=== PATIENT | female | born 1945 | race African-American/Black ===

== ENCOUNTER 2019-07-31 22:23 | Emergency (ER) | payer MEDICARE, OTHER ==
[~2019-07-31] VITALS: Ht 175.3 cm; Wt 99.8 kg
[2019-07-31 23:10] LABS: ABSOLUTE NEUTROPHILS 4.6 thou/uL (1.4-8.2); BASOPHILS 0.6 % (0.0-2.0); EOSINOPHILS 1.6 % (0.0-3.0); HEMATOCRIT 35.2 % (37.0-47.0); HEMOGLOBIN 11.8 gm/dL (12.0-15.0); LYMPHOCYTES 36.4 % (24.0-44.0); MCH 31.1 pg (26.0-34.0); MCHC 33.4 g/dL (28.0-37.0); MCV 93.1 fL (80.0-100.0); MONOCYTES 5.9 % (1.0-8.0); PLATELET COUNT 207 thou/uL (150-400); POLYS 55.5 % (36.0-66.0); RBC 3.78 mil/uL (4.20-5.00); RDW 13.6 % (10.5-14.5); WBC 8.3 thou/uL (4.0-11.0)
[2019-07-31] MEDS ORDERED: TYLENOL325 M1 PO (23:11)
[2019-07-31] MEDS ORDERED: MIRALAX119 GM PO (23:12)
[2019-07-31] MEDS ORDERED: LIPITOR 20 MG T20 M1 PO (23:13)
[2019-07-31] MEDS ORDERED: FAMOTIDINE 20 M20 MG PO (23:13)
[2019-07-31] MEDS ORDERED: LANTUS SUBQ (23:14)
[2019-07-31] MEDS ORDERED: PLAVIX 75 MG TA75 MG PO (23:14)
[2019-07-31] MEDS ORDERED: VOLTAREN GEL 1100 G1 TOP (23:16)
[2019-07-31] MEDS ORDERED: METFORMIN HCL500 M3 PO (23:16)
[2019-07-31 23:17] LABS: CALCIUM 9.7 mg/dL (8.5-10.1); CREATININE 1.6 mg/dL (0.6-1.0); POTASSIUM 4.1 mmol/L (3.5-5.1)
[2019-07-31] MEDS ORDERED: CALCIUM CARBON500 MG PO (23:17)
[2019-07-31] MEDS ORDERED: CARVEDILOL12.5 MG PO (23:18)
[2019-07-31] MEDS ORDERED: LISINOPRIL2.5 MG PO (23:19)
[2019-07-31] MEDS ORDERED: NORVASC 2.5 MG2.5 M1 PO (23:19)
[2019-07-31] MEDS ORDERED: AMITIZA8 MCG PO (23:20)
[2019-07-31] MEDS ORDERED: HYDRALAZINE 5050 MG PO (23:20)
[2019-07-31 23:23] LABS: ALBUMIN 3.2 g/dL (3.4-5.0); TOTAL BILIRUBIN 0.2 mg/dL (<0.1-1.0); TOTAL PROTEIN 7.9 g/dL (6.4-8.2)
[2019-08-01] MEDS ORDERED: DULCOLAX STOOL100 M1 PO (00:25)
[2019-08-01 00:29] LABS: URINE BILIRUBIN NEGATIVE (Negative); URINE BLOOD 3+ (Negative); URINE CLARITY CLOUDY; URINE COLOR YELLOW; URINE GLUCOSE-RANDOM* 1+ (Negative); URINE KETONES NEGATIVE (Negative); URINE LEUKOCYTES-REFLEX TRACE (Negative); URINE NITRITE-REFLEX NEGATIVE (Negative); URINE PROTEIN (DIPSTICK) 2+ (Negative); URINE SPECIFIC GRAVITY 1.025 (1.005-1.035); URINE UROBILINOGEN 0.2 E.U./dl (0.2-1.0)
[2019-08-01 00:31] VITALS: BP 142/63
[2019-08-01 00:55] LABS: BACTERIA-REFLEX 1-9 Few /HPF (None Seen); SQUAMOUS 4-10 Moderate /LPF (0-3); URINE RBC >20 Many /HPF (0-2); URINE WBC-REFLEX 0-5 Rare /HPF (0-5)
[2019-08-01 00:56] LABS: CASTS None Seen /LPF (None Seen); CRYSTALS None Seen /LPF (None Seen); MUCUS 0-3 Light strn/LPF (None Seen); YEAST-REFLEX Present (None Seen)
== END 2019-08-01 01:42 ==
LOC: ER 22:23
PROVIDERS: Emergency Medicine
DX: K59.00 Constipation, unspecified (principal); Z79.899 Other long term (current) drug therapy; Z88.6 Allergy status to analgesic agent; Z86.73 Personal history of transient ischemic attack (TIA), and cerebral infarction without residual deficits

== ENCOUNTER 2020-04-10 13:20 | Emergency (ER) | payer MEDICARE, OTHER ==
[~2020-04-10] VITALS: Ht 172.7 cm; Wt 117.9 kg
[~2020-04-10 13:20] MED LIST: AMITIZA8 MCG PO; CALCIUM CARBON500 MG PO; CARVEDILOL12.5 MG PO; DULCOLAX STOOL100 M1 PO; FAMOTIDINE 20 M20 MG PO; HYDRALAZINE 5050 MG PO; LANTUS SUBQ; LIPITOR 20 MG T20 M1 PO; LISINOPRIL2.5 MG PO; METFORMIN HCL500 M3 PO; MIRALAX119 GM PO; NORVASC 2.5 MG2.5 M1 PO; PLAVIX 75 MG TA75 MG PO; TYLENOL325 M1 PO; VOLTAREN GEL 1100 G1 TOP
[2020-04-10 14:18] LABS: URINE BILIRUBIN NEGATIVE (Negative); URINE BLOOD 3+ (Negative); URINE CLARITY HAZY; URINE COLOR YELLOW; URINE GLUCOSE-RANDOM* NEGATIVE (Negative); URINE KETONES TRACE (Negative); URINE LEUKOCYTES-REFLEX 1+ (Negative); URINE NITRITE-REFLEX NEGATIVE (Negative); URINE PROTEIN (DIPSTICK) 3+ (Negative); URINE SPECIFIC GRAVITY 1.025 (1.005-1.035); URINE UROBILINOGEN 0.2 E.U./dl (0.2-1.0)
[2020-04-10 14:29] LABS: SQUAMOUS None Seen /LPF (0-3)
[2020-04-10 14:30] LABS: AMORPHOUS URATES Moderate /LPF (None Seen); BACTERIA-REFLEX >30 Many /HPF (None Seen); CASTS None Seen /LPF (None Seen); URINE RBC >20 Many /HPF (0-2); URINE WBC-REFLEX >25 Many /HPF (0-5)
[2020-04-10 15:06] LABS: ABSOLUTE NEUTROPHILS 5.3 thou/uL (1.4-8.2); BASOPHILS 0.2 % (0.0-2.0); EOSINOPHILS 0.1 % (0.0-3.0); HEMATOCRIT 25.2 % (37.0-47.0); HEMOGLOBIN 8.3 gm/dL (12.0-15.0); LYMPHOCYTES 15.7 % (24.0-44.0); MCH 29.8 pg (26.0-34.0); MCHC 32.9 g/dL (28.0-37.0); MCV 90.6 fL (80.0-100.0); MONOCYTES 5.8 % (1.0-8.0); PLATELET COUNT 155 thou/uL (150-400); POLYS 78.2 % (36.0-66.0); RBC 2.78 mil/uL (4.20-5.00); RDW 14.2 % (10.5-14.5); WBC 6.7 thou/uL (4.0-11.0)
[2020-04-10 15:24] LABS: ANION GAP 13 mmol/L (7-16); BUN 41 mg/dL (7-18); CALCIUM 9.2 mg/dL (8.5-10.1); CHLORIDE 103 mmol/L (98-107); CO2 21 mmol/L (21-32); CREATININE 2.2 mg/dL (0.6-1.0); GLUCOSE 172 mg/dL (74-106); POTASSIUM 4.1 mmol/L (3.5-5.1); SODIUM 137 mmol/L (136-145)
[2020-04-10 15:28] LABS: ALBUMIN 2.6 g/dL (3.4-5.0); DIRECT BILIRUBIN < 0.1 mg/dL (<0.1-0.2); LIPASE 350 U/L (73-393); SGOT 22 U/L (15-37); SGPT 16 U/L (14-59); TOTAL BILIRUBIN 0.2 mg/dL (0.2-1.0); TOTAL PROTEIN 7.3 g/dL (6.4-8.2)
[2020-04-10 19:40] VITALS: BP 123/59
--- NOTE | 2020-04-11 07:35 | EKG ---
[place] [address] [facility] [place] [address] ELECTROCARDIOGRAM REPORT Name: AVINASH PALACIOS [id number] Admission: 04/10/20 Attend Phys: Discharge: 04/10/20 Date of : 45 Report #: [id number] [facility] ED Test Date: 2020-04-10 Test Time: 13:47:14 Pat Name: AVINASH PALACIOS Department: Room: Gender: F Lead Electrical Controls Engineer: DAKOTA : 1945 Requested By: Juwan Alonso Order Number: [id number] MD: Dio Brito Measurements Intervals [place] Rate: 67 P: 68 UT: 160 QRS: 2 QRSD: 91 T: 20 QT: 397 QTc: 419 Interpretive Statements Sinus rhythm Abnormal R-wave progression, early transition No previous ECG available for comparison Electronically Signed On 04-11-2020 7:35:45 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
== END 2020-04-10 19:40 | disposition home or self-care (01) ==
LOC: ER 13:20
PROVIDERS: Nurse Practitioner
DX: U07.1 COVID-19 (principal); J12.82 Pneumonia due to coronavirus disease 2019; N39.0 Urinary tract infection, site not specified; E11.22 Type 2 diabetes mellitus with diabetic chronic kidney disease; I12.9 Hypertensive chronic kidney disease with stage 1 through stage 4 chronic kidney disease, or unspecified chronic kidney disease; N18.9 Chronic kidney disease, unspecified; M19.90 Unspecified osteoarthritis, unspecified site; E78.5 Hyperlipidemia, unspecified; K21.9 Gastro-esophageal reflux disease without esophagitis; E66.01 Morbid (severe) obesity due to excess calories; Z68.39 Body mass index [BMI] 39.0-39.9, adult; Z79.899 Other long term (current) drug therapy; Z79.4 Long term (current) use of insulin; Z88.6 Allergy status to analgesic agent

== ENCOUNTER 2020-04-17 12:40 | Emergency (ER) | payer MEDICARE, OTHER ==
[~2020-04-17] VITALS: Ht 167.6 cm; Wt 104.3 kg
--- NOTE | 2020-04-17 13:52 | EKG ---
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 : 1945 Requested By: Veronique Mari Order Number: [id number] MD: Dio Brito Measurements Intervals [place] Rate: 67 P: 63 WV: 154 QRS: 18 QRSD: 81 T: 44 QT: 437 QTc: 462 Interpretive Statements Sinus rhythm Abnormal R-wave progression, early transition Probable left ventricular hypertrophy Baseline wander in lead(s) V1 Compared to ECG 04/10/2020 13:47:14 No significant changes Electronically Signed On 04-17-2020 13:52:08 EXPERIMENTAL MECHANIC SPACECRAFT by Dio Brito [email or web address] <ELECTRONICALLY SIGNED> By: Dio Brito MD, [facility] 04/17/20 1352 D: 01/1330 30 Dio Brito MD, FACC /EPI
[2020-04-17 15:10] LABS: ABSOLUTE NEUTROPHILS 10.2 thou/uL (1.4-8.2); BASOPHILS 0.1 % (0.0-2.0); EOSINOPHILS 0.3 % (0.0-3.0); HEMATOCRIT 27.7 % (37.0-47.0); MCH 29.3 pg (26.0-34.0); MCHC 32.4 g/dL (28.0-37.0); MCV 90.2 fL (80.0-100.0); MONOCYTES 4.1 % (1.0-8.0); PLATELET COUNT 309 thou/uL (150-400); POLYS 85.5 % (36.0-66.0); RBC 3.07 mil/uL (4.20-5.00); RDW 13.9 % (10.5-14.5); WBC 11.9 thou/uL (4.0-11.0)
[2020-04-17 15:22] LABS: ANION GAP 13 mmol/L (7-16); BUN 48 mg/dL (7-18); CALCIUM 9.5 mg/dL (8.5-10.1); CHLORIDE 104 mmol/L (98-107); CO2 20 mmol/L (21-32); CREATININE 1.6 mg/dL (0.6-1.0); GLUCOSE 225 mg/dL (74-106); POTASSIUM 4.5 mmol/L (3.5-5.1); SODIUM 137 mmol/L (136-145)
[2020-04-17 15:25] LABS: APTT 25.5 Seconds (24.5-32.8); INR 1.1; PROTIME 10.8 Seconds (9.3-11.4)
[2020-04-17 15:33] LABS: ALBUMIN 2.4 g/dL (3.4-5.0); LIPASE 245 U/L (73-393); MAGNESIUM 2.1 mg/dL (1.8-2.4); SGOT 15 U/L (15-37); SGPT 18 U/L (30-65); TOTAL BILIRUBIN 0.2 mg/dL (0.2-1.0); TOTAL PROTEIN 7.5 g/dL (6.4-8.2); TROPONIN-I <0.06 ng/mL (<0.06)
[2020-04-17 15:55] LABS: URINE BILIRUBIN NEGATIVE (Negative); URINE BLOOD 3+ (Negative); URINE CLARITY CLOUDY; URINE COLOR YELLOW; URINE GLUCOSE-RANDOM* NEGATIVE (Negative); URINE KETONES NEGATIVE (Negative); URINE NITRITE-REFLEX NEGATIVE (Negative); URINE PROTEIN (DIPSTICK) 3+ (Negative); URINE SPECIFIC GRAVITY 1.025 (1.005-1.035); URINE UROBILINOGEN 0.2 E.U./dl (0.2-1.0)
[2020-04-17 15:57] LABS: URINE LEUKOCYTES-REFLEX 1+ (Negative)
[2020-04-17 16:06] LABS: CASTS None Seen /LPF (None Seen); CRYSTALS None Seen /LPF (None Seen); SQUAMOUS 0-3 Few /LPF (0-3); URINE RBC >20 Many /HPF (0-2); URINE WBC-REFLEX >25 Many /HPF (0-5); YEAST-REFLEX Present (None Seen)
[2020-04-17 19:27] VITALS: BP 157/72
== END 2020-04-17 19:49 ==
LOC: ER 12:40
PROVIDERS: Physician Assistant
DX: U07.1 COVID-19 (principal); N32.9 Bladder disorder, unspecified; R55 Syncope and collapse; E11.22 Type 2 diabetes mellitus with diabetic chronic kidney disease; I12.9 Hypertensive chronic kidney disease with stage 1 through stage 4 chronic kidney disease, or unspecified chronic kidney disease; N18.9 Chronic kidney disease, unspecified; E66.01 Morbid (severe) obesity due to excess calories; M19.90 Unspecified osteoarthritis, unspecified site; E78.5 Hyperlipidemia, unspecified; K21.9 Gastro-esophageal reflux disease without esophagitis; E78.00 Pure hypercholesterolemia, unspecified; Z86.73 Personal history of transient ischemic attack (TIA), and cerebral infarction without residual deficits; Z68.37 Body mass index [BMI] 37.0-37.9, adult; Z79.4 Long term (current) use of insulin; Z79.899 Other long term (current) drug therapy; Z88.6 Allergy status to analgesic agent

== ENCOUNTER 2020-04-28 14:45 | Inpatient (IN) | payer MEDICARE, OTHER ==
[~2020-04-28] VITALS: Ht 165.1 cm; Wt 115.9 kg
[2020-04-28 14:51] VITALS: BP 140/60
[2020-04-28 15:59] LABS: URINE BLOOD 3+ (Negative); URINE CLARITY CLOUDY; URINE COLOR RED; URINE GLUCOSE-RANDOM* NEGATIVE (Negative); URINE KETONES NEGATIVE (Negative); URINE NITRITE-REFLEX NEGATIVE (Negative); URINE PROTEIN (DIPSTICK) 3+ (Negative); URINE UROBILINOGEN 0.2 E.U./dl (0.2-1.0)
[2020-04-28 16:00] LABS: ICTOTEST (BILI CONFIRMATORY) Negative (Negative); URINE BILIRUBIN NEGATIVE (Negative); URINE LEUKOCYTES-REFLEX 1+ (Negative)
--- NOTE | 2020-04-28 16:07 | EKG ---
[place] [address] [facility] [place] [address] ELECTROCARDIOGRAM REPORT Name: AVINASH PALACIOS [facility] #: [facility] [id number] Admission: 04/28/20 Attend Phys: Discharge: Date of : 45 Report #: [id number] [facility] ED Test Date: 2020-04-28 Test Time: 15:11:41 Pat Name: AVINASH PALACIOS Department: Room: Gender: F Certified Histologic Technician: ANGELA : 1945 Requested By: Oneil Llamas Order Number: [id number] MD: Leighton Chan Measurements Intervals [place] Rate: 59 P: 78 OK: 159 QRS: 11 QRSD: 89 T: 30 QT: 442 QTc: 438 Interpretive Statements Sinus bradycardia Abnormal R-wave progression, early transition Compared to ECG 04/17/2020 13:31:24 No significant changes found Electronically Signed On 04-28-2020 16:07:07 ACCIDENT EXAMINER by Leighton Chan [email or web address] <ELECTRONICALLY SIGNED> By: Leighton Chan MD, [facility] 04/28/20 1607 1511 1511 Leighton Chan MD, FACC /EPI
[2020-04-28 16:13] LABS: SQUAMOUS 0-3 Few /LPF (0-3)
[2020-04-28 16:14] LABS: BACTERIA-REFLEX >30 Many /HPF (None Seen); CASTS None Seen /LPF (None Seen); CRYSTALS None Seen /LPF (None Seen)
[2020-04-28 16:55] LABS: ANION GAP 12 mmol/L (7-16); BUN 52 mg/dL (7-18); CALCIUM 9.4 mg/dL (8.5-10.1); CHLORIDE 104 mmol/L (98-107); CO2 19 mmol/L (21-32); CREATININE 1.5 mg/dL (0.6-1.0); GLUCOSE 227 mg/dL (74-106); POTASSIUM 4.7 mmol/L (3.5-5.1); SODIUM 135 mmol/L (136-145)
[2020-04-28 17:05] LABS: ALBUMIN 2.7 g/dL (3.4-5.0); SGOT 12 U/L (15-37); SGPT 15 U/L (14-59); TOTAL BILIRUBIN 0.3 mg/dL (0.2-1.0); TOTAL PROTEIN 6.8 g/dL (6.4-8.2); TROPONIN-I <0.06 ng/mL (<0.06)
[2020-04-28 17:25] LABS: ABSOLUTE NEUTROPHILS 9.2 thou/uL (1.4-8.2); BASOPHILS 0.4 % (0.0-2.0); EOSINOPHILS 0.3 % (0.0-3.0); HEMATOCRIT 27.1 % (37.0-47.0); HEMOGLOBIN 8.8 gm/dL (12.0-15.0); LYMPHOCYTES 14.2 % (24.0-44.0); MCH 29.7 pg (26.0-34.0); MCHC 32.5 g/dL (28.0-37.0); MCV 91.3 fL (80.0-100.0); MONOCYTES 7.6 % (1.0-8.0); PLATELET COUNT 211 thou/uL (150-400); POLYS 77.5 % (36.0-66.0); RBC 2.97 mil/uL (4.20-5.00); RDW 15.2 % (10.5-14.5); WBC 12.9 thou/uL (4.0-11.0)
[2020-04-28 19:39] LABS: APTT 24.1 Seconds (24.5-32.8); INR 1.1
[2020-04-29 03:06] LABS: CHOLESTEROL 131 mg/dL (<200); HDL CHOLESTEROL 42 mg/dL (>40); LDL CHOLESTEROL 49 mg/dL (<100); TC:HDL 3.1 Ratio (Not establshd); TRIGLYCERIDE 203 mg/dL (<150); TROPONIN-I <0.06 ng/mL (<0.06); VLDL 41 mg/dL (<40)
[2020-04-29 03:07] LABS: SERUM ASSESSMENT Clear
--- NOTE | 2020-04-29 09:00 | NUR ---
ECHO STRESS TEST CALLED TO STATE THAT PT WILL NEED TO BE NPO AFTER MIDNIGHT, WATER IS OK, NO CAFFEINE AFTER 1999 TODAY (04/29/20), NO NITRO, BETA BLOCKERS, OR VASO DILATORS TO BE GIVEN IF ORDERED UNTIL AFTER STRESS TEST TOMORROW
[2020-04-29 13:19] VITALS: BP 162/58
--- NOTE | 2020-04-29 13:26 | NUR ---
TALKED WITH NUC MED AND THEY STATED PT WILL NOT BE ABLE TO DO THE ECHO STRESS TEST TOMORROW DUE TO NOT BEING ABLE TO GET THE MEDICATION NEEDED TOMORROW. ALL RESTRICTIONS REMOVED FROM TODAY AND MAY NEED TO BE DONE TOMORROW
--- NOTE | 2020-04-29 14:00 | NUR ---
ATTEMPTED TO CALL REPORT TO THE CCU. PLACED ON HOLD FOR OVER 5 MIN. TATIANNA CAMPBELL TAKING PT TO THE FLOOR AT THIS TIME.
[2020-04-29 14:05] VITALS: BP 181/78
--- NOTE | 2020-04-29 14:34 | NUR ---
74-year-old female who presents to the emergency department from her halfway facility ([facility]). For an episode of syncope with collapse. It was reported to ED that she was on a video call when she experienced syncope with full collapse and loss of consciousness. The halfway facility reports that they performed 4 minutes of CPR. The patient was admitted with Syncope with collapse, UTI, Lactic Acidosis, HTN, HLD, DMII, CKD, Hx of Carotid artery occlusion, History of stroke with aphasia and hemiplegia, History of COVID positive the last week of March 2020. Cardiology consulted and plan Nuc Med in AM of 04-30-20. NOTE: PT/OT order in on 04-29-20. The patient is assessed at A&O x 4 in the ED and listed at [phone] as next of kin is daughter Rae who also has another number of [phone]. Introduced role of case management. Hope and plan is to return to [facility]. Did discuss mother's frequent UTI issue and gave Urology referral to [phone]. Explained to daughter that CM will follow for anticipated return to [facility] for possible SNF then back to LTC. CM to follow for discharge needs.
--- NOTE | 2020-04-29 15:31 | NUR ---
ASSUMED PT CARE FROM ER. PT CALM AND COOPERATIVE. PT HAS RIGHT SIDED WEAKNESS WITH HX OF STROKE. PT IS BED/WHEELCHAIR DEPENDENT. PT DENIES PAIN AT THIS TIME. SEE ADMISSION DETAILS FOR DETAILED ASSESSMENT. VSS. WILL CONTINUE TO MONITOR.
--- NOTE | 2020-04-29 15:41 | 2DMMODE ---
[facility] [place] [address] 2 D/M-MODE ECHOCARDIOGRAM Name: AVINASH PALACIOS Room #: 200-I ADM IN M.R.#: [id number] Admission: 04/28/20 Attend Phys: Jabier Hansen MD Discharge: Date of : 45 Report #: [id number] THIS REPORT FOR: cc: Don Torres MD, Ramilo MD Santiago, Patrick MD [facility] ~ APPROVED REPORT Study performed: 04/29/2020 13:11:59 EXAM: Comprehensive 2D, Doppler, and color-flow Echocardiogram Patient Location: Bedside Room #: 200 Status: routine BSA: 2.41 HR: 53 bpm BP: 181/78 mmHg Rhythm: NSR, irregular Indications Syncope Hx: Bradycardia, hypotension, HLP, DM, CVA, PVD, Covid-19. 2D Dimensions RVDd: 41.73 mm IVSd: 12.00 (7-11mm) LVOT Diam: 21.00 (18-24mm) LVDd: 51.00 mm PWd: 12.00 (7-11mm) Ascending Ao: 38.15 (22-36mm) LVDs: 38.00 (25-40mm) Aortic Root: 34.74 mm Volumes Left Atrial Volume (Systole) Single Plane 4CH: 57.40 mL Single Plane 2CH: 78.53 mL LA ESV Index: 31.00 mL/m2 Aortic Valve AoV Peak Azael.: 1.67 m/s AO Peak Gr.: 11.12 mmHg LVOT Max P.70 mmHg LVOT Max V: 1.19 m/s LUIS ARMANDO Vmax: 2.59 cm2 Mitral Valve E/A Ratio: 0.7 [facility] [address] [place] [address] 2 D/M-MODE ECHOCARDIOGRAM Name: AVINASH PALACIOS Room #: 200-I [facility].#: [id number] Admission: 04/28/20 Attend Phys: Natalie Velez Discharge: Date of : 45 Report #: [id number] MV Decel. Time: 251.34 ms MV E Max Azael.: 0.53 m/s MV A Azael.: 0.77 m/s MV PHT: 72.89 ms IVRT: 110.73 ms Pulmonary Valve PV Peak Azael.: 1.04 m/s PV Peak Gr.: 4.29 mmHg Pulmonary Vein P Vein S: 0.51 m/s P Vein A: 0.29 m/s P Vein D: 0.32 m/s P Vein A Dur.: 107.3 msec P Vein S/D Ratio: 1.59 Tricuspid Valve TR Peak Azael.: 2.48 m/s RAP Estimate: 5.00 mmHg TR Peak Gr.: 25.00 mmHg PA Pressure: 30.00 mmHg Left Ventricle The left ventricle is normal size. There is normal LV segmental wall motion. Mild concentric left ventricular hypertrophy. Left ventricular systolic function is normal. LVEF is 55-60%. Mild diastolic dysfunction is present (impaired relaxation pattern). Right Ventricle The right ventricle is normal size. The right ventricular systolic function is normal. Atria The left atrium size is normal. The right atrium size is normal. Aortic Valve The aortic valve is normal in structure. Leaflets are mildly thickened and calcified. No aortic regurgitation is present. There is no aortic valvular stenosis. Mitral Valve The mitral valve is normal in structure. Trace mitral regurgitation. Tricuspid Valve The tricuspid valve is normal in structure. Mild tricuspid regurgitation. Estimated PAP is 30mmHg. [facility] [address] [place] [address] 2 D/M-MODE ECHOCARDIOGRAM Name: AVINASH PALACIOS Room #: 200-I [facility]#: [id number] Admission: 04/28/20 Attend Phys: Natalie Velez Discharge: Date of : 45 Report #: [id number] Pulmonic Valve The pulmonary valve is normal in structure. Mild pulmonic regurgitation. Great Vessels The aortic root is normal in size. The ascending aorta is normal in size. IVC is normal in size and collapses >50% with inspiration. Pericardium There is no pericardial effusion. <Conclusion> Normal left ventricular size with mild concentric hypertrophy Ejection fraction 60% Grade 1 diastolic dysfunction Normal right ventricular size/function Normal atrial size Color-flow Doppler study was performed of the aortic/mitral/tricuspid/pulmonary valve Aortic valve mildly calcified without stenosis Normal mitral valve structure and function Mild tricuspid valve insufficiency Pulmonary artery systolic pressure estimated at 30 mmHg No pericardial effusion <ELECTRONICALLY SIGNED> By: Dio Brito MD, FACC 04/29/20 1541 1541 154 Dio Brito MD, FACC /INF
[2020-04-29 20:07] VITALS: BP 157/48
--- NOTE | 2020-04-30 03:43 | HC ---
[facility] [place] [address] CONSULTATION Name: AVINASH PALACIOS Room #: 200-I ADM IN .R.#: [id number] Admission: 04/28/20 Attend Phys: Jabier Hansen MD Discharge: Date of : 45 Report #: [id number] THIS REPORT FOR: cc: Don Torres MD, Ramilo MD Khosla,Greg Knott MD ~ DATE OF SERVICE: 04/29/2020 HISTORY OF PRESENT ILLNESS: This is a 74-year-old female patient who is unable to provide any reliable history. No family member is here and the history is mainly from the records. She said she had dizziness and she passed out. That history is confirmed by the records. I reviewed those records and it looks like she even had resuscitation that time. She is also being seen by Cardiology in that regard. REVIEW OF SYSTEMS: Positive for what looks like a large left hemispheric CVA. She cannot tell me when it happened. She cannot tell me what the etiology for this one was. A 14-point review of system was carried out and is positive for a lot of things. It is positive for CVA with hemiplegia, diabetes, aphasia, hypertension, hypotension, bradycardia, chronic kidney disease. She was COVID positive a few weeks ago. She is massively obese. She has a history of obstructive sleep apnea, osteoarthritis, hyperlipidemia, GERD. She had another episode, which was diagnosed as a vasovagal attack some time ago. That was the 14-point review of system, which was relevant and which I can get in this patient. PAST SURGICAL HISTORY: Positive for knee surgery. FAMILY HISTORY: Positive for coronary artery disease. SOCIAL HISTORY: She does not smoke or drink any alcohol. PHYSICAL EXAMINATION: Indicate she is alert. She is responsive. It is difficult to tell about mentation, because her speech is poor. She could not tell me what month it is, what hospital she is in. I do not know what her baseline is. Cranial nerve examination, 2-12 does not appear to be showing any marked abnormality except for probably facial on the right side. I cannot tell about hemianopsia. She is weak on the right side, but she can move some. I tried to do the position sense, it was unsuccessful. Her reflexes are diminished. She could not understand the instruction for cerebellar sign. There is no meningeal sign. Cardiac examinations appear unremarkable. No respiratory difficulty. She is massively obese. She has no thyroid mass. There is no carotid bruit. Pulses are difficult to feel. She has no edema, cyanosis or jaundice. Blood pressure is 142/54, pulse is 61, temperature is 97.8. [address] [address] CONSULTATION Name: SUZANNEAVINASH Alex Room #: 200-I ADM IN M.R.#: [id number] Admission: 04/28/20 Attend Phys: Jabier Hansen MD Discharge: Date of : 45 Report #: [id number] scan shows old stroke. Carotid Doppler need to be reviewed with the radiologist ____. On my examination, she did not move the legs on either side, she said it is cold. I am going to get an evaluation by PT, OT tomorrow and that is already ordered and we need to find out how old it is. IMPRESSION: 1. An episode of syncope. patient with strokes can have seizure. I am not certain that is what she is having. I will get an EEG done. 2. She did move her legs for me. She says it is old, it is difficult to tell. I will get evaluation by PT tomorrow. 3. She has a large stroke and I will try to reach the family and see what her baseline condition is. I tried to explain all of this to the patient, but I am not sure how much she understands. Thank you very much for this referral and if you have any question, please feel free to contact me. <ELECTRONICALLY SIGNED> By: Greg Whitmore MD 04/30/20 0343 05 51 Greg Whitmore MD /nt
[2020-04-30 03:56] VITALS: BP 144/56
[2020-04-30 07:00] VITALS: BP 146/60
--- NOTE | 2020-04-30 07:18 | NUR ---
ASSESSMENTS CHARTED, MEDS CHARTED GIVEN. RESTING IN BED DURING SHIFT. HAS UTI, URINE IS ADALBERTO BLOOD RED, EXTERNAL FEMALE CATHETER IN PLACE. ON ROOM AIR, TURNED SIDE TO SIDE DURING NIGHT. PATIENT HAS BEEN NPO SINCE MIDNIGHT FOR NUCLEAR MED STRESS TEST THIS AM. MRI ALSO SCHEDULED FOR TODAY. FALL PRECAUTIONS IN PLACE. DENIED PAIN.
[2020-04-30 11:30] VITALS: BP 165/62
--- NOTE | 2020-04-30 13:27 | NUR ---
EEG SCAN IN HAPPENING RIGHT NOW, PT HOOKED UP TO ELECTRODES. EXTERNAL CATHETER IN PLACE AND CONTINUES TO HAVE BLOOD IN HER OUTPUT-DISCUSSED SUCH WITH DR MORRIS.
--- NOTE | 2020-04-30 16:02 | NUR ---
[facility] liason updated. No dc today as pt had MRI this am and EEG this afternoon. Continues to have bleeding r/t UTI and on iv atb. [facility] can accept when ready. They will see if they can get auth for snf stay from ins plan or return to longterm care at dc. Will ask for therapy orders.
[2020-04-30 16:30] VITALS: BP 169/75
--- NOTE | 2020-04-30 17:12 | NUR ---
HER URINE CONTINUES VIA PUREWICK TO BE VERY RED IN COLOR AND CONCETRATED. THIS ISSUES HAS TO BE RESOLVED PRIOR TO ANY DISCHARGE.
[2020-04-30 19:55] VITALS: BP 140/34
[2020-05-01 01:06] LABS: GLYCOHEMOGLOBIN (HGB A1C) 7.5 % (4.8-5.6)
[2020-05-01 04:00] VITALS: BP 172/76
--- NOTE | 2020-05-01 06:14 | NUR ---
ASSESSMENTS CHARTED, MEDS CHARTED GIVEN. PATIENT STILL HAVING ADALBERTO BLOOD URINE. NORMAL SALINE MAINTENANCE FLUID. PLAN OF CARE TO RECEIVE ANTIBIOTIC THERAPY FOR UTI. FALL PRECAUTIONS IN PLACE DURING SHIFT.
[2020-05-01 06:20] LABS: ABSOLUTE RETIC COUNT 0.0788 10^6/uL; OBSERVED RETIC COUNT 2.64 % (0.6-2.6)
[2020-05-01 06:23] LABS: % SATURATION 16 % (20-39); IRON 28 ug/dL (50-170); TIBC 173 ug/dL (250-450)
[2020-05-01 06:32] LABS: FERRITIN 122 ng/mL (8-252)
[2020-05-01 07:33] VITALS: BP 188/89
[2020-05-01 08:07] LABS: CALCIUM 8.9 mg/dL (8.5-10.1); CREATININE 1.3 mg/dL (0.6-1.0); POTASSIUM 3.9 mmol/L (3.5-5.1)
[2020-05-01 10:18] LABS: HEMATOCRIT 27.4 % (37.0-47.0); HEMOGLOBIN 8.7 gm/dL (12.0-15.0)
[2020-05-01 11:28] VITALS: BP 176/80
[2020-05-01 15:34] VITALS: BP 140/74
--- NOTE | 2020-05-01 17:39 | NUR ---
ASSUMED CARE SHIFT CHANGE. ASSESSMENTS CHARTED.MEDS GIVEN. VSS. DENIES PAIN. O2 SAT WNL RA. STRESS TEST THIS SHIFT SEE RESULTS. UROLOGY CONSULT- REFER TO CONSULT NOTE. PT CONTINUES TO HAVE DARK RED URINE. APPETITE ADEQUATE. EXTERNAL CATH IN PLACE. CONTINUING TO MONITOR .WILL PASS ON REPORT TO NOC RN.
[2020-05-01 19:44] VITALS: BP 130/58
--- NOTE | 2020-05-02 03:26 | NUR ---
Assumed pt care at 1900. Pt is alert and oriented to self. No sign of distress noted in pt. Pt is laying in bed, denies pain. Hematuria continues to be noted with urine. Fall precaution in place. Vital signs stable. Assessment completed and documented. Scheduled meds administered to pt. Tolerated PO intake. No acute events overnight. Continue to monitor. No further needs at this time.
[2020-05-02 05:52] VITALS: BP 133/65
[2020-05-02 07:07] VITALS: BP 137/74
[2020-05-02 11:00] VITALS: BP 143/72
[2020-05-02 15:04] VITALS: BP 156/69
[2020-05-02 18:57] VITALS: BP 139/61
--- NOTE | 2020-05-02 20:00 | NUR ---
ASSUMED CARE OF PT AT SHIFT CHANGE. ASSESSMENTS CHARTED. MEDS GIVEN PER MAY. PT A&OX4, C/O PAIN TREATED WITH TYLENOL. NO DISTRESS NOTED DURING SHIFT. URINE STILL RED. PLAN FOR CYSTYOSCOPY WILL BE DONE OUTPATIENT WITH UROLOGY. WILL CONTINUE TO MONITOR FOR CHANGES AND FOLLOW POC.
--- NOTE | 2020-05-03 03:59 | NUR ---
Assumed pt care at 1900. Pt is alert and oriented to self. Pt is stable. Pt is stable. Fall precaution in place. Denies pain. Assessment completed and documented. No complaints through the night. Scheduled meds administered to pt. Tolerated PO intake. Patient is pending discharge. Continue to monitor.
[2020-05-03 04:02] VITALS: BP 147/59
[2020-05-03 07:26] VITALS: BP 146/73
[2020-05-03 10:10] LABS: ABSOLUTE NEUTROPHILS 3.5 thou/uL (1.4-8.2); BASOPHILS 0.5 % (0.0-2.0); EOSINOPHILS 2.8 % (0.0-3.0); HEMATOCRIT 25.5 % (37.0-47.0); HEMOGLOBIN 8.4 gm/dL (12.0-15.0); LYMPHOCYTES 21.5 % (24.0-44.0); MCH 30.1 pg (26.0-34.0); MCHC 32.8 g/dL (28.0-37.0); MCV 91.7 fL (80.0-100.0); MONOCYTES 10.2 % (1.0-8.0); PLATELET COUNT 123 thou/uL (150-400); RBC 2.78 mil/uL (4.20-5.00); RDW 16.1 % (10.5-14.5); WBC 5.4 thou/uL (4.0-11.0)
[2020-05-03 10:25] LABS: ALBUMIN 2.5 g/dL (3.4-5.0); CALCIUM 8.9 mg/dL (8.5-10.1); CREATININE 1.3 mg/dL (0.6-1.0); POTASSIUM 3.9 mmol/L (3.5-5.1); TOTAL BILIRUBIN 0.2 mg/dL (0.2-1.0); TOTAL PROTEIN 5.8 g/dL (6.4-8.2)
[2020-05-03 12:02] VITALS: BP 146/72
--- NOTE | 2020-05-03 16:03 | NUR ---
ASSUMED CARE SHIFT CHANGE. ASSESSMENTS CHARTED.MEDS GIVEN. VSS. DENIES PAIN. PT CONSTIPATED DR NOTIFIED ORDERS RECEIVED. URINE REMAINS BLOODY, UPDATED UROLOGIST. TURNS ENFORCED. PT CURRENTLY RESTING IN BED. CONTINUING POC. WILL PASS ON REPORT TO PAM RN.
[2020-05-03 17:04] VITALS: BP 166/81
[2020-05-03 19:40] VITALS: BP 128/66
[2020-05-04] VITALS (7 sets, daily range): BP systolic 135–175; BP diastolic 53–93
[2020-05-04 10:47] LABS: CALCIUM 8.9 mg/dL (8.5-10.1); CREATININE 1.2 mg/dL (0.6-1.0); POTASSIUM 3.8 mmol/L (3.5-5.1)
--- NOTE | 2020-05-04 15:53 | NUR ---
ORIENTED BUT SLOW MENTATION. HEMATURIA PERSISTS. DENIES CP, SOA. HTN, RENAL STUDIES NOTED. FALL PRECAUTIONS IN PLACE.
[2020-05-05] VITALS (9 sets, daily range): BP systolic 127–170; BP diastolic 46–82
--- NOTE | 2020-05-05 06:19 | NUR ---
ASSESSMENTS CHARTED, MEDS CHARTED GIVEN. RESTING IN BED DURING SHIFT. ALERT AND ORIENTED. ON ROOM AIR, HAD BOWEL MOVEMENT, OCCULT STOOL SAMPLE SENT TO LAB. PRESSURE WOUNDS ON BOTTOM, BARRIER CREAM APPLIED. PTS URINE IS STILL RED WITH BLOOD. ON ABX THERAPY. FALL PRECAUTIONS IN PLACE DURING SHIFT.
[2020-05-05 08:34] LABS: HEMOGLOBIN 8.4 gm/dL (12.0-15.0); MCH 29.6 pg (26.0-34.0); MCHC 32.2 g/dL (28.0-37.0); MCV 92.2 fL (80.0-100.0); RBC 2.82 mil/uL (4.20-5.00); RDW 16.6 % (10.5-14.5); WBC 5.7 thou/uL (4.0-11.0)
--- NOTE | 2020-05-05 15:04 | NUR ---
FAXED CLINICAL UPDATE TO [facility] SPOKE WITH JUAN IN ADM SHE RECEIVED UPDATE.
--- NOTE | 2020-05-05 18:36 | NUR ---
PT CARE ASSUMED AT 0700. ASSESSMENTS CHARTED. MEDICATIONS CHARTED. CARLOZ IV. RH IV. PUREWICK/INCONTINENT. PROCEDURE 05/06. COVID SENT. SINUS RHYTHM. SCHEDULED HYDRALAZINE.
[2020-05-06] VITALS (8 sets, daily range): BP systolic 148–1752; BP diastolic 48–91
--- NOTE | 2020-05-06 05:51 | NUR ---
PT IS ALERT AND ORIENTEDX4. LUNGS ARE CLEAR TO DIMINISHED. ON ROOM AIR. INFORMED BY LAB WAS COVID SWAB WAS POSITIVE. PT IS INCONTINENT AND SOME IN PUR WICK VAGINAL CATH. TURN Q2 HOURS. WEAK ON RIGHT SIDE FROM A PAST CVA. Z GAURD TO COCCYX AREA WHEN TURNED PT AND REPOSTIONION WITH PILLOWS. ABDOMEN IS SOFT AND ROUND. BOWEL SOUNDS ACTIVE X4. WILL CONTINUE TO ASSESS AND MONNITOR PER SOLO
--- NOTE | 2020-05-06 11:05 | NUR ---
AAOX4. AASHISHIES SUSANA ARMSTRONG. SR PER TELE. URINE TO WALL SUCTION LIGHT PINK. POSSIBLE CYSTOSCOPY TODAY. FALL PRECAUTIONS IN PLACE.
[2020-05-06 13:33] LABS: HEMATOCRIT 23.4 % (37.0-47.0); HEMOGLOBIN 7.7 gm/dL (12.0-15.0); MCH 29.4 pg (26.0-34.0); MCHC 32.9 g/dL (28.0-37.0); MCV 89.3 fL (80.0-100.0); RBC 2.62 mil/uL (4.20-5.00); WBC 5.2 thou/uL (4.0-11.0)
[2020-05-06 13:39] LABS: CALCIUM 8.8 mg/dL (8.5-10.1); CREATININE 0.9 mg/dL (0.6-1.0); POTASSIUM 3.5 mmol/L (3.5-5.1)
--- NOTE | 2020-05-06 15:39 | NUR ---
FAXED TODAY'S OT NOTES TO [facility] SPOKE WITH JUAN IN ADM SHE WILL NEED PT NOTES ONCE AVAILABLE.
[2020-05-07 05:30] LABS: HEMATOCRIT 27.4 % (37.0-47.0); HEMOGLOBIN 8.8 gm/dL (12.0-15.0)
[2020-05-07 05:40] VITALS: BP 140/50; BP 160/45
[2020-05-07 07:24] VITALS: BP 129/55
[2020-05-07] MEDS ORDERED: NORVASC10 MG PO (10:04)
[2020-05-07] MEDS ORDERED: LAMICTAL 25 MG25 MG PO (10:04)
[2020-05-07] MEDS ORDERED: BENICAR20 MG PO (10:04)
[2020-05-07] MEDS ORDERED: PROTONIX 20 MG20 M1 PO (10:04)
[2020-05-07] MEDS ORDERED: HYDRALAZINE 2525 MG PO (10:04)
[2020-05-07] MEDS ORDERED: METFORMIN HCL500 M3 PO (10:13)
--- NOTE | 2020-05-07 11:04 | NUR ---
WOUND CARE F/U; THE WOUND IS BEEFY RED WITHOUT ANY S/S OF INFECTION. THE PATIENT IS UP WITH THERAPY AND THE WOUND WAS CLEARLY VISUALIZED. THE WOUND IS 1.5 X 1.5 X 0.1 NO ODOR OR ANY S/S OF INFECTION. RECOMMEDNATIONS; CONTINUE VIANCA. DISCUSSED WITH SOPHIA
[2020-05-07 11:09] VITALS: BP 124/58
--- NOTE | 2020-05-07 14:58 | NUR ---
CABEZAS CONTINUES TO HAVE YELLOW OUTOUT WITHVERY SLIGHT PINK TINGE TO IT BUT TRULY IMPROVED. IV REMOVED FRO D/C TODAY. PT IS AOX4. [facility] AND F/U ORDERS, QUESTION'S ANSWERED.
--- NOTE | 2020-05-07 15:03 | NUR ---
SPOKE TO DAUGHTER AND EXPLAINED TRANSFER TODAY BACK TO [facility], SHE UNDERSTOOND WHAT WAS HAPPENING AND NEW ORDERS FOR WOUND CARE TO BUTTOCKS. TRANSFERRED PHONE INTO ROOM SO SHE COULD SPEAK TO HER MOTHER DIRECTLY. IV REMOVED NO SIGN'S OF DIFFICULTIES OBSERVED AT SITE, NO INFILTRATION NOTED.
[2020-05-07 16:26] VITALS: BP 133/52
--- NOTE | 2020-05-08 12:54 | NUR ---
PT DISCHARGED ON 05/07 TO [facility] SKILLED FAXED DC ORDERS/SUMMARY SPOKE WITH YASMINE IN ADM SHE RECEIVED ORDERS TRANSPORT ARRANGED WITH [facility] FOR [id number]. NOTIFIED PT'S DTR (DMITRI).
--- NOTE | 2020-05-09 17:06 | PATH ---
[facility] [place] [address] [place] [address] PATHOLOGY RPT PROCEDURE Name: AVINASH PORTER Alex Room #: 200-I DIS IN M.R.#: [id number] Admission: 04/28/20 Date of : 45 Discharge: 05/07/20 Report #: [id number] Path Case #: [id number] [facility] Accession Number: [id number] . 01 Material submitted: . bladder - BLADDER TUMOR . 02 Diagnosis: Urinary bladder "bladder tumor", TURBT: - INVASIVE PAPILLARY UROTHELIAL CARCINOMA, HIGH GRADE. - EXTENSIVE INVASION INTO THE MUSCULARIS PROPRIA. - SEE CANCER SUMMARY BELOW. . . Surgical Pathology Cancer Case Summary Protocol posting date: April 2019 . URINARY BLADDER: Biopsy and Transurethral Resection of Bladder Tumor (TURBT) Procedure ___ Transurethral resection of bladder (TURBT) Tumor Site ___ Not specified Histologic Type ___ Papillary urothelial carcinoma, invasive Histologic Grade ___ High-grade Tumor Configuration ___ Papillary ___ Solid/nodule Muscularis Propria Presence ___ Muscularis propria (detrusor muscle) present Lymphovascular Invasion ___ Indeterminate Tumor Extension ___ Tumor invades muscularis propria LBQ 05/09/2020 1629 Local . 02 Comment: The case is seen in co-review by Dr. Russ Asher. . The results are conveyed to Estephania Funes, in Dr. Hartley' office, at approximately 14:50 on 05/09/20. . (MLK/db; 05/08/2020) . 02 Electronically signed: . [facility] [address] [place] [address] PATHOLOGY RPT PROCEDURE Name: AVINASH PORTER Room #: 200-I DIS IN [facility].#: [id number] Admission: 04/28/20 Date of : 45 Discharge: 05/07/20 Report #: [id number] Path Case #: [id number] Destinee Rich MD, Pathologist NPI- [id number] . 01 Gross description: . The specimen is received in formalin, labeled "Avinash Porter, bladder tumor". Received is a large amount of light espinoza to pink-espinoza friable tissue measuring 8.8 x 6.3 x 1.8 cm in aggregate dimensions. The specimen is submitted representatively in cassettes A1 through A10. Approximately 50% of the specimen is submitted. (CAA; 05/07/2020) QAC/QAC 05/07/2020 [facility] . 02 Pathologist provided ICD-10: C67.9 . 02 CPT . 569726 Specimen Comment: A courtesy copy of this report has been sent to [phone], [phone] Specimen Comment: [phone] Specimen Comment: Report sent to / DR GUAMAN Performed at: [address], [place], [place] [id number] MD Mario Patton MD Phone: [phone] Performed at: [address] [id number] MD Monisha Hernadez MD Phone: [phone]
--- NOTE | 2020-05-12 10:45 | EEG ---
[facility] [place] [address] ELECTROENCEPHALOGRAM Name: AVINASH PALACIOS Room #: 200-I [facility] IN M.R.#: [id number] Admission: 04/28/20 Attend Phys: Jabier Hansen MD Discharge: 05/07/20 Date of : 45 Report #: [id number] THIS REPORT FOR: //name// DATE OF SERVICE: 04/30/2020 This patient is being evaluated for an episode of syncope. EEG was done by placing the electrode by standard 10-20 system of electrode placement. Both referential and sequential montages were used for recording. Background activity in this patient's EEG is about 9-10 Hz and 30 microvolt. This is a symmetrical activity. Photic stimulation is unremarkable. The patient appeared to be asleep during most of the EEG and that is associated with bilateral slowing and vertex sharp waves. Throughout the record, no active epileptiform activity was noticed. IMPRESSION: This patient's EEG is intermixed with theta range slowing on both sides, that is a nonspecific abnormality, which can occur with encephalopathy, effect of psychotropic medication, dementia, etc. Clinical correlation is recommended. <ELECTRONICALLY SIGNED> By: Greg Whitmore MD 05/12/20 1045 0948 [id number] Greg Whitmore MD /nt
== END 2020-05-07 18:10 | DRG 853 ==
LOC: ER 14:45 → EROBS 18:12 → 2N 18:12 → EROBS 18:13 → 2N 04-29 14:11
PROVIDERS: Emergency Medicine; Internal Medicine; Nurse Practitioner Adult Health; Nurse Practitioner Family; Urology; ADMIT Hospitalist; ATTEND Hospitalist
PROC: 0TBB8ZZ Excision of Bladder, Via Natural or Artificial Opening Endoscopic (ICD-10-PCS; principal; 2020-05-06)
DX: A41.9 Sepsis, unspecified organism (principal); N17.0 Acute kidney failure with tubular necrosis; U07.1 COVID-19; D68.32 Hemorrhagic disorder due to extrinsic circulating anticoagulants; N39.0 Urinary tract infection, site not specified; I69.359 Hemiplegia and hemiparesis following cerebral infarction affecting unspecified side; D62 Acute posthemorrhagic anemia; G93.40 Encephalopathy, unspecified; C67.9 Malignant neoplasm of bladder, unspecified; R31.9 Hematuria, unspecified; E11.65 Type 2 diabetes mellitus with hyperglycemia; E78.5 Hyperlipidemia, unspecified; M19.90 Unspecified osteoarthritis, unspecified site; K21.9 Gastro-esophageal reflux disease without esophagitis; G47.00 Insomnia, unspecified; E11.22 Type 2 diabetes mellitus with diabetic chronic kidney disease; G47.33 Obstructive sleep apnea (adult) (pediatric); E86.0 Dehydration; I12.9 Hypertensive chronic kidney disease with stage 1 through stage 4 chronic kidney disease, or unspecified chronic kidney disease; N18.9 Chronic kidney disease, unspecified; R31.0 Gross hematuria; I25.10 Atherosclerotic heart disease of native coronary artery without angina pectoris; Z96.659 Presence of unspecified artificial knee joint; Z79.01 Long term (current) use of anticoagulants; Z79.4 Long term (current) use of insulin; Z79.899 Other long term (current) drug therapy; Z88.8 Allergy status to other drugs, medicaments and biological substances; Z99.3 Dependence on wheelchair
CPT/HCPCS: 10081; 50101; 50455; 56815; 57006; 57160; 58565; 62110; 62900; 70005

== ENCOUNTER 2020-06-03 05:41 | Inpatient (IN) | payer MEDICARE, OTHER ==
[2020-06-03] VITALS (28 sets, daily range): BP systolic 99–158; BP diastolic 59–108
[~2020-06-03] VITALS: Ht 175.3 cm; Wt 116.6 kg
[~2020-06-03 05:41] MED LIST changes: +BENICAR20 MG PO; +HYDRALAZINE 2525 MG PO; +LAMICTAL 25 MG25 MG PO; +NORVASC10 MG PO; +PROTONIX 20 MG20 M1 PO
[2020-06-03] MEDS ORDERED: OXYBUTYNIN CHLOR5 M1 PO (05:50)
[2020-06-03 06:18] LABS: ABSOLUTE NEUTROPHILS 11.3 thou/uL (1.4-8.2); BASOPHILS 0.1 % (0.0-2.0); HEMOGLOBIN 9.5 gm/dL (12.0-15.0); LYMPHOCYTES 18.8 % (24.0-44.0); MCH 28.3 pg (26.0-34.0); MCHC 31.7 g/dL (28.0-37.0); MCV 89.2 fL (80.0-100.0); MONOCYTES 4.4 % (1.0-8.0); PLATELET COUNT 240 thou/uL (150-400); POLYS 76.7 % (36.0-66.0); RBC 3.37 mil/uL (4.20-5.00); RDW 16.1 % (10.5-14.5); WBC 14.8 thou/uL (4.0-11.0)
[2020-06-03 06:25] LABS: CALCIUM 9.6 mg/dL (8.5-10.1); CREATININE 1.5 mg/dL (0.6-1.0); POTASSIUM 4.5 mmol/L (3.5-5.1)
[2020-06-03 06:35] LABS: ALBUMIN 2.9 g/dL (3.4-5.0); TOTAL BILIRUBIN 0.3 mg/dL (0.2-1.0); TOTAL PROTEIN 8.2 g/dL (6.4-8.2)
[2020-06-03 06:39] LABS: TROPONIN-I 4.7 ng/mL (<0.06)
--- NOTE | 2020-06-03 07:20 | EKG ---
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 [employer]: ARETHA : 1945 Requested By: Philip Dalal Order Number: [id number] MD: Dio Brito Measurements Intervals [place] Rate: 108 P: 76 MN: 148 QRS: -9 QRSD: 88 T: 117 QT: 374 QTc: 502 Interpretive Statements Sinus tachycardia Left ventricular hypertrophy Nonspecific T abnormalities, lateral leads Prolonged QT interval Compared to ECG 04/28/2020 15:11:41 Left ventricular hypertrophy now present T-wave abnormality now present Prolonged QT interval now present Sinus bradycardia no longer present Electronically Signed On 06-03-2020 7:20:04 CDT by Dio Brito [email or web address] <ELECTRONICALLY SIGNED> By: Dio Brito MD, [facility] 03/719 9 Dio Brito MD, [facility] /EPI
--- NOTE | 2020-06-03 07:30 | NUR ---
SPOKE WITH PT'S DAUGHTER, JEFFRY, VIA PHONE, UPDATED ON PT'S CONDITION AND PLAN OF CARE. [phone]
[2020-06-03 07:56] LABS: URINE BILIRUBIN NEGATIVE (Negative); URINE BLOOD 3+ (Negative); URINE COLOR YELLOW; URINE GLUCOSE-RANDOM* TRACE (Negative); URINE KETONES NEGATIVE (Negative); URINE PROTEIN (DIPSTICK) 3+ (Negative); URINE SPECIFIC GRAVITY 1.025 (1.005-1.035); URINE UROBILINOGEN 0.2 E.U./dl (0.2-1.0)
[2020-06-03 08:01] LABS: URINE CLARITY CLOUDY; URINE LEUKOCYTES-REFLEX 2+ (Negative); URINE NITRITE-REFLEX POSITIVE (Negative)
[2020-06-03 08:33] LABS: PLATELET ESTIMATE NORMAL
[2020-06-03 08:35] LABS: AMORPHOUS PHOSPHATES Many /LPF (None Seen); BACTERIA-REFLEX >30 Many /HPF (None Seen); CASTS None Seen /LPF (None Seen); CRYSTALS None Seen /LPF (None Seen); SQUAMOUS 0-3 Few /LPF (0-3); URINE RBC 3-10 Few /HPF (0-2); URINE WBC-REFLEX >25 Many /HPF (0-5)
--- NOTE | 2020-06-03 11:50 | NUR ---
VAT CONSULTED FOR CVAD. PT'S LABS,MEDS,HX OREDER AND CONSENT VERIFIED. RIJ WAS WIDELY PATENT WITH USG MEASURED 21% 6FR 25CM TL POWER JACC INSERTED TO 8CM EXTERNAL. PT TOLERATED WELL. CXR CONFIRMED IJ AT [facility]. CVAD RELEASED FOR IMMEDIATE USE PER PROTOCOL.
[2020-06-03 15:20] LABS: BE(vivo) -5.5 mmol/L (-2 to +3); PO2 60.6 mmHg (80.0-100.0); pH 7.426 (7.360-7.450); sO2 92.3 % (92.0-98.0)
[2020-06-03] MEDS ORDERED: METFORMIN HCL500 MG PO (15:30)
--- NOTE | 2020-06-03 16:31 | NUR ---
ASSUMED CARE AT 14:35, PT ARRIVED FROM ED ON CART BY RN X 2. PT TRANSFERRED TO ICU BED, PLACED ON MONITOR, ASSESSMENT AND VITAL SIGNS COMPLETED. RT CALLED TO ASSESS PT. DR. DENIZ TRAN, PLAN OF CARE DISCUSSED. PT'S DAUGHTER, DMITRI, CALLED AND UPDATED, SHE WAS THE SOURCE OF PT HISTORY AND INFORMATION. RN WILL CONTINUE TO MONITOR.
--- NOTE | 2020-06-03 22:33 | NUR ---
UPDATED JEFFRY LAN (DPOA) ABOUT PT STATUS AND THE THAT SHE IS BEING RESTRAINED FOR HER SAFETY. DAUGHTER IS AWARE AND THANKFUL FOR THE UPDATE
[2020-06-04] VITALS (53 sets, daily range): BP systolic 106–234; BP diastolic 50–199
[2020-06-04 06:01] LABS: ABSOLUTE NEUTROPHILS 6.5 thou/uL (1.4-8.2); BASOPHILS 0.5 % (0.0-2.0); EOSINOPHILS 0.9 % (0.0-3.0); LYMPHOCYTES 27.9 % (24.0-44.0); MCH 29.3 pg (26.0-34.0); MCV 91.6 fL (80.0-100.0); MONOCYTES 5.7 % (1.0-8.0); PLATELET COUNT 174 thou/uL (150-400); RBC 2.73 mil/uL (4.20-5.00); RDW 16.3 % (10.5-14.5)
[2020-06-04 06:31] LABS: BUN 31 mg/dL (7-18); CALCIUM 8.7 mg/dL (8.5-10.1); CHLORIDE 109 mmol/L (98-107); CHOLESTEROL 136 mg/dL (<200); CO2 20 mmol/L (21-32); CREATININE 1.1 mg/dL (0.6-1.0); GLUCOSE 183 mg/dL (74-106); HDL CHOLESTEROL 38 mg/dL (>40); LDL CHOLESTEROL 57 mg/dL (<100); MAGNESIUM 1.5 mg/dL (1.8-2.4); TC:HDL 3.6 Ratio (Not establshd); TRIGLYCERIDE 207 mg/dL (<150); VLDL 41 mg/dL (<40)
[2020-06-04 06:36] LABS: ANION GAP 14 mmol/L (7-16); POTASSIUM 3.5 mmol/L (3.5-5.1); SERUM ASSESSMENT Clear; SODIUM 143 mmol/L (136-145)
--- NOTE | 2020-06-04 10:03 | EKG ---
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 : 1945 Requested By: Skniny Rodriguez Order Number: [id number] MD: Dio Brito Measurements Intervals [place] Rate: 83 P: 35 IA: 137 QRS: -14 QRSD: 96 T: 155 QT: 489 QTc: 575 Interpretive Statements Sinus rhythm Abnormal R-wave progression, early transition LVH with secondary repolarization abnormality Prolonged QT interval Baseline wander in lead(s) V3 Compared to ECG 06/03/2020 06:10:06 Early repolarization now present Sinus tachycardia no longer present T-wave abnormality no longer present Electronically Signed On 06-04-2020 10:03:45 CDT by Dio Brito [email or web address] <ELECTRONICALLY SIGNED> By: Dio Brito MD, FACC 06/04/20 1003 0741 0741 Dio Brito MD, [facility] /EPI
--- NOTE | 2020-06-04 12:12 | NUR ---
Case opened to follow for dc planning. Pt is currently in ICU and unable to participate in cm assessment. Pt known to cm from previous admission last month. The pt is a long-term care resident at [facility] and was dc'd back there under her skilled benefit in April. She has since transitioned back to ltc. The pt has a hx of cva and bladder ca. She is a full code and dtrs Rae and Mady are her primary contacts. Farm Advisor spoke with Rae and she indicates that the pt has a dpoa for health care in place with her and her sister on it. She does not have an adv directive or living will document. She asked that I get a copy from the correction. She reports the pt was up to a w/c prior to admission with assist of one. She was able to feed herself with setup and help with upper ext adl's. Farm Advisor spoke with admissions at [facility] and they are holding her bed. They indicate the pt does have skilled benefits available if therapy is needed at dc;they would need to get ins auth. They will check to see if they have a copy of the pt's dpoa for hc on file. Dc service planner to fax them an update. Pt admitted with fever and continuing to have seizure activity this am.She is being treated for UTI. Dtr provided unit number to call the ICU nurse for an update. Pt is covid recovered from March 2020. Will follow.
--- NOTE | 2020-06-04 13:36 | 2DMMODE ---
[address] [address] 2 D/M-MODE ECHOCARDIOGRAM Name: AVINASH PALACIOS Room #: 239-P ADM IN M.R.#: [id number] Admission: 06/03/20 Attend Phys: Jabier Hansen MD Discharge: Date of : 45 Report #: [id number] THIS REPORT FOR: cc: Don Torres MD, Ramilo MD Lammoglia, Francisco J. MD ~ APPROVED REPORT Study performed: 06/03/2020 14:44:01 EXAM: Comprehensive 2D, Doppler, and color-flow Echocardiogram Patient Location: ICU Room #: 239 Status: routine BSA: 2.23 HR: 91 bpm BP: 154/94 mmHg Rhythm: NSR Indications CAD Chest Pain Hypertension/HDD 2D Dimensions IVC: 22.00 mm Tricuspid Valve TR Peak Azael.: 2.60 m/s TR Peak Gr.: 27.61 mmHg PA Pressure: 46.00 mmHg Left Ventricle The left ventricle is normal size. There is hypokinesis in the apical septal wall. Mild concentric left ventricular hypertrophy. Left ventricular systolic function is mildly decreased. LVEF is 40%. This study is not technically sufficient to allow evaluation of the LV diastolic function. Right Ventricle The right ventricle is normal size. The right ventricular systolic function is normal. [facility] [address] [address] 2 D/M-MODE ECHOCARDIOGRAM Name: AVINASH PALACIOS Room #: 239-P ADM IN M.R.#: [id number] Admission: 06/03/20 Attend Phys: Natalie Velez Discharge: Date of : 45 Report #: [id number] Left atrium is dilated. Right atrium is dilated. Aortic Valve The aortic valve is normal in structure. Mitral Valve The mitral valve is normal in structure. Mild mitral regurgitation. No evidence of mitral valve stenosis. Tricuspid Valve The tricuspid valve is normal in structure. There is mild tricuspid regurgitation. Estimated PAP 46 mmHg. There is moderate pulmonary hypertension. Pulmonic Valve The pulmonary valve is normal in structure. Great Vessels The aortic root is normal in size. IVC is dilated and collapses <50% with inspiration. Pericardium There is no pericardial effusion. <Conclusion> The left ventricle is normal size. Mild concentric left ventricular hypertrophy. There is hypokinesis in the apical septal wall. LVEF is 40%. Left atrium is dilated. Right atrium is dilated. The aortic valve is normal in structure. The mitral valve is normal in structure. Mild mitral regurgitation. The tricuspid valve is normal in structure. There is mild tricuspid regurgitation. Estimated PAP 46 mmHg. There is moderate pulmonary hypertension. The pulmonary valve is normal in structure. There is no pericardial effusion. <ELECTRONICALLY SIGNED> By: Skinny Rodriguez MD 06/04/20 1336 1336 133 Skinny Rodriguez MD /INF
--- NOTE | 2020-06-04 14:28 | NUR ---
FAXED CLINICAL UPDATE TO [facility] RECEIVED CONFIRMATION AND LEFT MSG WITH JUAN IN ADM.
[2020-06-04 18:09] LABS: BE(vivo) -3.7 mmol/L (-2 to +3); HCO3 18.5 mmol/L (22.0-26.0); PCO2 23.9 mmHg (35.0-45.0); PO2 70.4 mmHg (80.0-100.0); pH 7.507 (7.360-7.450); sO2 95.8 % (92.0-98.0)
--- NOTE | 2020-06-04 20:15 | NUR ---
This RN talked to Rae, daughter at 1900 regarding patient care. Also previously day shift nurse talked with mill house supervisor regarding if Rae could visit elaine. After clearing this with the supervisor blast furnace's, Rae visited at 2000 for 15 minutes. All questions answered and updated on status. Daughter pushing for other family members and after discussing with supervisors, I instructed her to call them tomorrow morning to see if they could speak with Adrianne.
[2020-06-05] VITALS (24 sets, daily range): BP systolic 122–165; BP diastolic 47–89
[2020-06-05 06:25] LABS: HEMATOCRIT 23.5 % (37.0-47.0); HEMOGLOBIN 7.4 gm/dL (12.0-15.0); MCH 28.9 pg (26.0-34.0); MCHC 31.6 g/dL (28.0-37.0); MCV 91.5 fL (80.0-100.0); RBC 2.57 mil/uL (4.20-5.00); RDW 16.3 % (10.5-14.5); WBC 8.3 thou/uL (4.0-11.0)
[2020-06-05 06:28] LABS: CALCIUM 8.5 mg/dL (8.5-10.1); CREATININE 1.1 mg/dL (0.6-1.0); POTASSIUM 3.3 mmol/L (3.5-5.1)
--- NOTE | 2020-06-05 06:28 | NUR ---
This RN spoke to Mady Madden, daughter at 0620 this morning. Updated on plan of care and patient status. Explained seizures ceased but that pt is still very sick. Expressed wishes to be able to visit mother this morning if possible. Instructed her to call back at 0800 in hopes to talk to [facility]. Possible change to no code today and comfort care. Not progressing towards goals.
[2020-06-05 08:23] LABS: % SATURATION 26 % (20-39); IRON 33 ug/dL (50-170); TIBC 127 ug/dL (250-450)
--- NOTE | 2020-06-05 10:43 | NUR ---
FAXED CLINICAL UPDATES WITH POSITIVE COVID RESULT5 TO [facility]. WILL CONFIRM WITH YASMINE/INTAKE THAT SHE RECEIVED REPORTS. [facility] P [phone]; FAX [phone]
[2020-06-05 17:20] LABS: HEMATOCRIT 24.4 % (37.0-47.0); HEMOGLOBIN 7.8 gm/dL (12.0-15.0)
--- NOTE | 2020-06-05 19:17 | NUR ---
06/05/20 ASSUMED PATIENT CARE AT 0700. PATIENT TRANSITIONED FROM BIPAP TO 2L NC. BRADYCARDIC FOR MOST OF THE DAY. METOPROLOL HELD. DOBHOFF TUBE PLACED PER ORDERS. ADVANCED PER XRAY AND SECOND XRAY OBTAINED FOR PROPER POSITIONING. CALLED DIETARY AND LEFT MESSAGE REGARDING INITIATION OF TUBE FEEDINGS. PATIENT HAS TWITCHING PRESENT, NEUROLOGY AND PRIMARY TEAM AWARE. DILANTIN ORDERED- SEE EMAR FOR DETAILS. FOLLOWS COMMANDS ON THE LEFT SIDE. DAUGHTER DMITRI UPDATED MULTIPLE TIMES THROUGHOUT THE DAY REGARDING DOBHOFF PLACEMENT AND VISITING POLICY. PER CNO AND MANAGEMENT, 3 VISITORS ALLOWED TOMORROW.
[2020-06-06] VITALS (25 sets, daily range): BP systolic 108–182; BP diastolic 53–95
[2020-06-06 05:36] LABS: CALCIUM 8.7 mg/dL (8.5-10.1); POTASSIUM 3.2 mmol/L (3.5-5.1)
[2020-06-06 09:42] LABS: HEMATOCRIT 25.1 % (37.0-47.0); HEMOGLOBIN 7.9 gm/dL (12.0-15.0)
--- NOTE | 2020-06-06 12:14 | NUR ---
chart review. discussed during am rounds. spoke with daughter georgina via phone call. no concerns voiced. no anticipated dc over the weekend. dcp ignite/[place] when stable to for dc. cm notified that has been approved for family to be able to visit for 15min. will cont following as needed for dc needs. nutritional support via dobhoff.
--- NOTE | 2020-06-06 19:15 | NUR ---
2L NC DURING THE DAY. FAMILY CAME TO VIST TODAY. NO SIGNIFICANT CHANGES. TWITCHING CONTINUES TO BE SEEN ON RIGHT SIDE OF FACE.
[2020-06-07] VITALS (26 sets, daily range): BP systolic 68–148; BP diastolic 36–64
[2020-06-07 05:43] LABS: CALCIUM 8.6 mg/dL (8.5-10.1); POTASSIUM 3.4 mmol/L (3.5-5.1)
--- NOTE | 2020-06-07 19:20 | NUR ---
PATIENT CODE STATUS DNR. DESIGNATED VISITOR PRADIP (SON) TO SEE PATIENT TODAY. PATIENT DOES NOT MAKE PROGRESS TOWARDS DISMISSAL GOALS. FAMILY EXPRESSES WISHES FOR PATIENT TO HAVE HOME HOSPICE AND GO HOME. DR JACOBS NOTIFIED. PALLIATIVE CARE CONSULT ATTEMPT. WAS UNABLE TO CONTACT. DR JACOBS AWARE AND VOICED SHE WILL CONTACT MD TOMORROW ABOUT CONSULT.
[2020-06-08] VITALS (24 sets, daily range): BP systolic 108–150; BP diastolic 35–56
[2020-06-08 04:45] LABS: ABSOLUTE RETIC COUNT 0.0952 10^6/uL; OBSERVED RETIC COUNT 3.59 % (0.6-2.6)
--- NOTE | 2020-06-08 06:36 | NUR ---
PATIENT REMAINS LETHARGIC. ON 2L VIA NC. FOLLOWS COMMANDS AT TIME. AFEBRILE. VSS. CABEZAS IN PLACE WITH GOOD U/O. NO GENERALIZED SEIZURE NOTED THIS TOD. SEIZURE PRECAUIIONS IN PLACE. TUBE FEEDS. TOLERATING WELL. WILL KEEP MONITORING
--- NOTE | 2020-06-08 10:49 | EEG ---
[facility] [place] [address] ELECTROENCEPHALOGRAM Name: AVINASH PALACIOS Room #: 239-P [facility] IN M.R.#: [id number] Admission: 06/03/20 Attend Phys: Jabier Hansen MD Discharge: Date of : 45 Report #: [id number] THIS REPORT FOR: //name// DATE OF SERVICE: 06/03/2020 This patient is being evaluated for seizure. EEG was done by placing the electrode by standard 10-20 system of electrode placement. Both referential and sequential montages were used for recording. Background activity in this patient's EEG is about 5-6 Hz and 15 microvolt. Photic stimulation is unremarkable. The patient kept having twitching and is difficult to tell whether it is a twitching artifact or seizure. IMPRESSION: This patient's EEG is slow and poorly formed. That is a nonspecific abnormality, which can occur with encephalopathy, effect of psychotropic medication, dementia, etc. The patient also has either twitching artifact or focal seizure. It is difficult to tell on the EEG. <ELECTRONICALLY SIGNED> By: Greg Whitmore MD 06/08/20 1049 1122 1127 Greg Whitmore MD /nt
--- NOTE | 2020-06-08 10:49 | HC ---
[facility] [place] [address] CONSULTATION Name: AVINASH PALACIOS Room #: 239-P ADM IN M.R.#: [id number] Admission: 06/03/20 Attend Phys: Jabier Hansen MD Discharge: Date of : 45 Report #: [id number] THIS REPORT FOR: cc: Don Torres MD, Ramilo MD Khosla,Greg Knott MD ~ DATE OF SERVICE: 06/03/2020 HISTORY OF PRESENT ILLNESS: This is a 74-year-old female patient who is not able to provide any history. I talked to Emergency Room physician, Dr. Weber and I talked to Dr. Hansen, the hospitalist, who is admitting this patient. I talked to the nurse looking after this patient and this patient is also known to me from prior admission. This patient had presented with a question of seizures last time. After talking to the family, she was started on Lamictal, which needed to be titrated as an outpatient and in the alf and the best I can tell, it was not titrated. She started having seizures again and she is found to be septic again. She was given 1000 mg of Keppra and Ativan and she was still having mild twitching, but was not having any grand mal seizure when I saw this patient. REVIEW OF SYSTEMS: Pretty extensive in this patient. That is summarized in my prior notes. This patient was discussed with the daughter last time and this patient has a prior stroke with aphasia and right hemiplegia. She was worked up for a bladder mass last time. Her MRI of the brain shows a very extensive chronic disease. She has significant compromised cognitive abilities in the baseline. She is being seen by Cardiology at this time for the possibility of DC. nobody to provide any history this time, but I have talked to the patient's daughter last time and she has a history of a stroke, aphasia, diabetes, hypertension, chronic kidney disease. She was COVID positive last time; she is COVID positive now. She also has a history of vasovagal spell that, which complicate the things. PAST MEDICAL HISTORY: Positive for knee surgery. FAMILY HISTORY: Positive for coronary artery disease. SOCIAL HISTORY: She does not smoke or drink any alcohol. PHYSICAL EXAMINATION: Pretty limited. She opened her eyes, but she did not say a single thing for me. She was still having twitching, which was on the right side. She did move the left side, she did not move the right side. She appeared to be hemodynamically stable and does not appear to have any marked respiratory difficulty. Her blood pressure was 134/98, pulse is 106, respiration was 27 and she was febrile when she came in and her temperature was 103 and another one was 99.6. She does not appear to have meningeal sign. She [address] [address] CONSULTATION Name: AVINASH PALACIOS Room #: 239-P [facility] IN M.R.#: [id number] Admission: 06/03/20 Attend Phys: Jabier Hansen MD Discharge: Date of : 45 Report #: [id number] is morbidly obese. LABORATORY DATA: Her white count is 14.8. GFR is 41. IMPRESSION: It would appear this patient has a very extensive disease in her brain, which is chronic. She is already given Keppra; I gave her some more dose of Keppra. I will talk to the daughter again. I think it will be very desirable not to be very aggressive in this patient because her quality of the life is extremely poor. Thank you very much for this referral. We will follow this patient along with you. <ELECTRONICALLY SIGNED> By: Greg Whitmore MD 06/08/20 1049 1131 1238 Greg Whitmore MD /nt
--- NOTE | 2020-06-08 18:38 | NUR ---
06/08/20 ASSUMED PATIENT CARE AT 0700. PATIENT TRANSIIONED TO 2L OXYGEN FOR DAYTIME. NO SEIZURE ACTIVITY NOTED. PATIENT VERY LETHARGIC AND NOT FOLLOWING COMMANDS. SON AT BEDSIDE AND UPDATED. SON EXPRESSED THAT FAMILY WISHES TO BRING PATIENT HOME ON HOSPICE, PROVIDER AWARE. WILL CONTINUE TO MONITOR.
[2020-06-09] VITALS (8 sets, daily range): BP systolic 133–198; BP diastolic 37–104
--- NOTE | 2020-06-09 | NUR ---
PT RESTING QUIETLY. REMAINS NONVERBAL. NO FURTHER STOOL .DANA TUBE FEEDING AT 60 CC/HR. LUNGS DIMINISHED BILAT. GOOD URINARY OUTPUT. SINUS RHYTHM. PT IS A DNR. FAMILY WANT TO TAKE HER HOME ON HOSPICE. BUSINESS SERVICES REPRESENTATIVE WILL ARRANGE FOR THIS TODAY. WILL CONT TO MONITOR.
--- NOTE | 2020-06-09 02:30 | NUR ---
TRANSFERRTED TO [address] [place] [address] 462 WITH RN.
--- NOTE | 2020-06-09 05:07 | NUR ---
ASSUMED CARE OF PT FROM ICU AT 0230HRS. PT IS ALERT BUT IS NON-VERBAL. NEEDS MUST BE ASSUMED. FALL PRECAUTION IN PLACE. O2 CONTINUED AT 2L VIA NC. SCDS IN PLACE. TF GOING AT 60ML/HR VIA DOBBHOFF (R NARE, 50CM). CABEZAS IN PLACE AND PATIENT. PT APPEARS TO BE COMFORTABLE. WILL CONTINUE TO MONITOR FOR CHANGES.
[2020-06-09 06:34] LABS: CALCIUM 8.5 mg/dL (8.5-10.1); CREATININE 0.8 mg/dL (0.6-1.0)
[2020-06-09 06:36] LABS: POTASSIUM 2.9 mmol/L (3.5-5.1)
--- NOTE | 2020-06-09 10:04 | NUR ---
updates to be sent to mobile with yanelis mark per facility request.
--- NOTE | 2020-06-09 14:07 | NUR ---
ACORDING TO CHART NOTES OVER WEEKEND FAMILY HAD EXPRESSED INTEREST IN PT DISCHARGING TO HER HOME WITH HOSPICE SERVICES. CM CALLED PT'S DTR DMITRI THIS AM SHE INDIATED THAT WAS TRUE. SHE INDICATED THAT SHE IS CURRENTLY STAYING AT PT'S HOUSE [address] [place], [place] AND PLAN WOULD BE FOR PT TO RETURN THERE WITH HOSPICE SERVICES AND FAMILIAL SUPPORT. CM EXPLAINED THAT HOSPICE WOULDN'T BE THERE 24/ IN THE HOME SETTING AND THAT PT WOULD NEED 24/ SUPERVISON AND ASSISTANCE. PT'S DTR INDICATED SHE WAS GOING TO REACH OUT TO A FRIEND FOR RECOMMENDATION FOR HOSPICE PROVIDER. CM AWAITING RESPONSE FROM HER REGARDING PROVIDER. CM MET WITH PT AND SON GENE AT BEDSIDE THIS AFTERNOON AND HE CONFIRMED THAT PREFERENCE. NO NOTIFIED PHYSICIAN OF PROGRESS. CLINICAL UPDATE ALSO SENT TO [facility]. CM FOLLOWING REGARDING DC PLANNING.
--- NOTE | 2020-06-09 16:20 | NUR ---
FAXED CLINICAL UPDATE TO [facility] SPOKE WITH YASMINE IN ADM SHE RECEIVED UPDATE. DP TO FOLLOW.
--- NOTE | 2020-06-09 17:02 | NUR ---
FAXED REFERRAL TO [facility] RECEIVED CONFIRMATION AND ERASTO THAKUR) WILL F/U WITH THEM IN THE MORNING 06/10.
--- NOTE | 2020-06-09 17:33 | NUR ---
RN ASSUMED PT'S CARE AT 0700AM, PT OPENS HER EYES SOMETIMES, BUT PT DOES NOT FOLLOW COMMANDS, PT IS CONFUSED, PT IS ON O2 2L/MIN/NC, PT IS CONTIUING IV ABX , PT'S VS ARE STABLE, PT IS ON L MITTEN ,BUT PT PULLED OUT HER DOBHOFF TUBE AT THIS MORNING , RN HAS CALLED JUNE LATHAM FOR PT OFF DOBHOFF TUBE, PT HAS NEW ORDER SP TO ASSESS AND PT STARTS IV FLUID.
[2020-06-09 18:50] LABS: POTASSIUM 3.3 mmol/L (3.5-5.1)
[2020-06-10 01:00] VITALS: BP 173/80
--- NOTE | 2020-06-10 05:11 | NUR ---
ASSUMED CARE OF PT AT SHIFT CHANGE. PT IS NON-VERBAL AND REQUIRES TOTAL CARE. FALL PRECAUTION IN PLACE. 2L O2 VIA NC CONTINUED; CPAP FOR HS. CABEZAS IN PLACE AND PATIENT. PT IS NPO. ST TO JUAN PT HIS AM. LEFT HAND MITTEN RESTRAINT IN PLACE. PT WAS ABLE TO FREE HERSELF FROM THE MITTEN AND GAVE HERSELF A SKIN TEAR ON RIGHT CHEST. PICS TAKEN. IV FLUIDS AND ABX TREATMENT CONTINUED. PT WAS ABLE TO GET COMFORTABLE AND SLEEP. PT HAD HTN BUT OTHER VSS. PT WAS ABLE TO GET COMFORTABLE AND SLEEP PART OF THE SHIFT. WILL CONTINUE TO MONITOR.
[2020-06-10 08:49] VITALS: BP 191/87
[2020-06-10 09:31] VITALS: BP 156/60
--- NOTE | 2020-06-10 10:10 | NUR ---
DTR DMITRI ASKED THAT REFERRAL BE SENT TO [facility]. REFERRAL FAXED LATE YESTERDAY AFTERNOON. CM SPOKE WITH CORDELL IN INTAKE THIS AM THEY RECEIVED REFERRAL AND WILL REACH OUT TO JEFFRY TO DISCUSS SERVICES AND DME NEEDS. CM INDICATED THAT PT IS MEDICALLY STABLE TO DC HOME ONTO HOSPICE SERVICES IF FAMILY IS AGREEABLE AND DME DELIVERY CAN BE ARRANGED. CM FOLLOWING REGARDING DC PLANNING.
[2020-06-10] MEDS ORDERED: MSL20MG/ML PO (15:13)
[2020-06-10 15:37] VITALS: BP 167/75
--- NOTE | 2020-06-10 15:46 | NUR ---
[facility]. PT'S DTR AND GRANDSON ARE AT THE HOME GETTING THINGS SITUATED. ORDERS FAXED TO [facility]. CM TO SET UP [facility] TRANSPORT. PT TO DC WITH CABEZAS IN PLACE. OUTSIDE HOSPITAL DNR FORM COMPLETED. CM TO ATTEMPT TO SCHEDULE TRNSPORT AROUND 1800.
[2020-06-10 16:32] VITALS: BP 181/85
[2020-06-10 17:03] VITALS: BP 181/76
--- NOTE | 2020-06-10 19:55 | NUR ---
ASSUMED CARE AT 0700, ASSESSMENT AND VITAL SIGNS COMPLETED PER UNIT POLICY. PT TRANSFERRED HOME WITH HOSPICE BY [facility] X 2. PT HAD NO DISTRESS AND WAS COMFORTABLE LEAVING THE UNIT.
== END 2020-06-10 19:00 | disposition hospice, home (50) | DRG 871 ==
LOC: ER 05:41 → EROBS 08:40 → ICU 08:40 → 2N 14:14 → ICU 14:46 → 4W 06-09 02:32
PROVIDERS: Emergency Medicine; Hospitalist; Internal Medicine; Internal Medicine Pulmonary Disease; Nurse Practitioner; Nurse Practitioner Adult Health; ADMIT Hospitalist; ATTEND Hospitalist
PROC: 02HV33Z Insertion of Infusion Device into Superior Vena Cava, Percutaneous Approach (ICD-10-PCS; principal; 2020-06-03)
PROC: 5A09357 Assistance with Respiratory Ventilation, Less than 24 Consecutive Hours, Continuous Positive Airway Pressure (ICD-10-PCS; 2020-06-04)
PROC: 5A09357 Assistance with Respiratory Ventilation, Less than 24 Consecutive Hours, Continuous Positive Airway Pressure (ICD-10-PCS; 2020-06-05)
PROC: 5A09357 Assistance with Respiratory Ventilation, Less than 24 Consecutive Hours, Continuous Positive Airway Pressure (ICD-10-PCS; 2020-06-06)
PROC: 5A09357 Assistance with Respiratory Ventilation, Less than 24 Consecutive Hours, Continuous Positive Airway Pressure (ICD-10-PCS; 2020-06-07)
PROC: 5A09357 Assistance with Respiratory Ventilation, Less than 24 Consecutive Hours, Continuous Positive Airway Pressure (ICD-10-PCS; 2020-06-08)
PROC: 5A09357 Assistance with Respiratory Ventilation, Less than 24 Consecutive Hours, Continuous Positive Airway Pressure (ICD-10-PCS; 2020-06-09)
PROC: 5A09357 Assistance with Respiratory Ventilation, Less than 24 Consecutive Hours, Continuous Positive Airway Pressure (ICD-10-PCS; 2020-06-10)
DX: A41.9 Sepsis, unspecified organism (principal); I21.4 Non-ST elevation (NSTEMI) myocardial infarction; U07.1 COVID-19; G93.41 Metabolic encephalopathy; J96.21 Acute and chronic respiratory failure with hypoxia; J12.82 Pneumonia due to coronavirus disease 2019; N39.0 Urinary tract infection, site not specified; N17.9 Acute kidney failure, unspecified; I69.351 Hemiplegia and hemiparesis following cerebral infarction affecting right dominant side; E46 Unspecified protein-calorie malnutrition; I67.82 Cerebral ischemia; I13.0 Hypertensive heart and chronic kidney disease with heart failure and stage 1 through stage 4 chronic kidney disease, or unspecified chronic kidney disease; E87.3 Alkalosis; I42.9 Cardiomyopathy, unspecified; E87.0 Hyperosmolality and hypernatremia; I50.9 Heart failure, unspecified; N18.9 Chronic kidney disease, unspecified; E66.01 Morbid (severe) obesity due to excess calories; M19.90 Unspecified osteoarthritis, unspecified site; E78.5 Hyperlipidemia, unspecified; Z66 Do not resuscitate; Z51.5 Encounter for palliative care; G47.33 Obstructive sleep apnea (adult) (pediatric); K21.9 Gastro-esophageal reflux disease without esophagitis; K59.00 Constipation, unspecified; R65.20 Severe sepsis without septic shock; G47.00 Insomnia, unspecified; D64.9 Anemia, unspecified; E11.22 Type 2 diabetes mellitus with diabetic chronic kidney disease; E78.00 Pure hypercholesterolemia, unspecified; Z96.659 Presence of unspecified artificial knee joint; I65.29 Occlusion and stenosis of unspecified carotid artery; F03.90 Unspecified dementia, unspecified severity, without behavioral disturbance, psychotic disturbance, mood disturbance, and anxiety; B95.2 Enterococcus as the cause of diseases classified elsewhere; E87.6 Hypokalemia; B96.20 Unspecified Escherichia coli [E. coli] as the cause of diseases classified elsewhere; G40.909 Epilepsy, unspecified, not intractable, without status epilepticus; I69.320 Aphasia following cerebral infarction; Z68.37 Body mass index [BMI] 37.0-37.9, adult; Z88.6 Allergy status to analgesic agent; Z86.16 Personal history of COVID-19; Z82.49 Family history of ischemic heart disease and other diseases of the circulatory system; Z83.3 Family history of diabetes mellitus; Z85.51 Personal history of malignant neoplasm of bladder
CPT/HCPCS: 10045; 10078; 10203

== ENCOUNTER 2020-06-15 14:57 | Emergency (ER) | payer MEDICARE, OTHER ==
[~2020-06-15] VITALS: Ht 170.2 cm; Wt 90.7 kg
[~2020-06-15 14:57] MED LIST changes: +METFORMIN HCL500 MG PO; +MSL20MG/ML PO; +OXYBUTYNIN CHLOR5 M1 PO
[2020-06-15 15:22] LABS: URINE BILIRUBIN NEGATIVE (Negative); URINE BLOOD 3+ (Negative); URINE CLARITY CLOUDY; URINE COLOR YELLOW; URINE GLUCOSE-RANDOM* NEGATIVE (Negative); URINE KETONES NEGATIVE (Negative); URINE PROTEIN (DIPSTICK) 3+ (Negative); URINE SPECIFIC GRAVITY >= 1.030 (1.005-1.035); URINE UROBILINOGEN 0.2 E.U./dl (0.2-1.0)
[2020-06-15 15:23] LABS: URINE LEUKOCYTES-REFLEX 1+ (Negative); URINE NITRITE-REFLEX POSITIVE (Negative)
[2020-06-15 15:29] LABS: URINE WBC-REFLEX >25 Many /HPF (0-5); WBC CLUMPS Packed (None Seen); YEAST-REFLEX Present (None Seen)
[2020-06-15 15:30] LABS: URINE RBC >20 Many /HPF (0-2)
[2020-06-15 15:31] LABS: CALCIUM OXALATE 0-3 Few /LPF (None Seen)
[2020-06-15 15:32] LABS: SQUAMOUS 0-3 Few /LPF (0-3)
[2020-06-15 15:34] LABS: BACTERIA-REFLEX >30 Many /HPF (None Seen); CASTS None Seen /LPF (None Seen)
[2020-06-15 15:40] LABS: ABSOLUTE NEUTROPHILS 5.2 thou/uL (1.4-8.2); BASOPHILS 0.6 % (0.0-2.0); EOSINOPHILS 2.9 % (0.0-3.0); HEMATOCRIT 33.6 % (37.0-47.0); HEMOGLOBIN 10.8 gm/dL (12.0-15.0); LYMPHOCYTES 30.5 % (24.0-44.0); MCHC 32.2 g/dL (28.0-37.0); MCV 92.9 fL (80.0-100.0); MONOCYTES 9.6 % (1.0-8.0); PLATELET COUNT 202 thou/uL (150-400); POLYS 56.4 % (36.0-66.0); RBC 3.61 mil/uL (4.20-5.00); RDW 18.3 % (10.5-14.5); WBC 9.1 thou/uL (4.0-11.0)
[2020-06-15 15:49] LABS: CALCIUM 9.4 mg/dL (8.5-10.1); CREATININE 1.2 mg/dL (0.6-1.0); POTASSIUM 3.4 mmol/L (3.5-5.1)
[2020-06-15 15:55] LABS: ALBUMIN 2.9 g/dL (3.4-5.0); TOTAL BILIRUBIN 0.2 mg/dL (0.2-1.0); TOTAL PROTEIN 8.2 g/dL (6.4-8.2)
[2020-06-15 16:17] LABS: POLYCHROMASIA SLIGHT; TEARDROPS OCCASIONAL
[2020-06-15] MEDS ORDERED: CARVEDILOL12.5 MG PO (16:20)
[2020-06-15] MEDS ORDERED: KEPPRA XR500 MG PO (16:27)
[2020-06-15] MEDS ORDERED: DIFLUCAN200 MG PO (16:27)
[2020-06-15] MEDS ORDERED: LEVOFLOXACIN500 MG PO (16:27)
[2020-06-15 17:02] VITALS: BP 151/66
== END 2020-06-15 18:57 | disposition home or self-care (01) ==
LOC: ER 14:57
PROVIDERS: Nurse Practitioner
DX: R56.9 Unspecified convulsions (principal); K21.9 Gastro-esophageal reflux disease without esophagitis; E78.5 Hyperlipidemia, unspecified; I12.9 Hypertensive chronic kidney disease with stage 1 through stage 4 chronic kidney disease, or unspecified chronic kidney disease; N18.9 Chronic kidney disease, unspecified; Z79.899 Other long term (current) drug therapy; Z88.6 Allergy status to analgesic agent